=== PATIENT | female | born 1950 | race Hispanic/Latino ===

== ENCOUNTER 2021-05-08 19:46 | Emergency (ER) | payer MEDICARE, OTHER ==
[~2021-05-08] VITALS: Ht 160 cm; Wt 81.6 kg
[~2021-05-08 19:46] MED LIST: ALENDRONATE SOD70 MG PO; ATENOLOL50 MG PO; LEVOTHYROXINE100 MC1 PO; SIMVASTATIN40 MG PO
[2021-05-08] MEDS ORDERED: LIDOCAINE 4% PATCH TP STA (20:11)
[2021-05-08] MEDS ORDERED: KETOROLAC TROMETHAMINE 30 MG/ML VIAL IM STA (20:11)
[2021-05-08] MEDS ORDERED: ACETAMINOPHEN 325 MG TAB PO ONE (20:15)
[2021-05-08] MEDS ORDERED: ACETAMINOPHEN 325 MG TAB ONE (20:26)
[2021-05-08] MEDS ORDERED: KETOROLAC TROMETHAMINE 30 MG/ML VIAL ONE (20:26)
[2021-05-08] MEDS ORDERED: LIDOCAINE 4% PATCH TP ONE (20:26)
[2021-05-08 20:33] LABS: CLARITY,URINE CLEAR (CLEAR); COLOR,URINE YELLOW (YELLOW); KETONES,URINE NEGATIVE (NEGATIVE); LEUKOCYTE ESTERASE ,URINE NEGATIVE (NEGATIVE); NITRITE,URINE NEGATIVE (NEGATIVE); PROTEIN,URINE DIPSTICK NEGATIVE (NEGATIVE); URINE UROBILINOGEN 0.2 mg/dL (0.2 - 1)
[2021-05-08 20:44] LABS: AMORPHOUS SEDIMENT,URINE MODERATE (FEW); BACTERIA,URINE MODERATE /HPF; EPITHELIAL CELLS,URINE FEW /LPF; MUCUS,URINE FEW (RARE); RBC,URINE 0-5 /HPF (0-5)
[2021-05-08] MEDS ORDERED: CEPHALEXIN500 MG PO (21:02)
[2021-05-08] MEDS ORDERED: LIDOPATCH1 EACH TOP (21:02)
[2021-05-08] MEDS ORDERED: METHOCARBAMOL500 MG PO (21:03)
== END 2021-05-08 23:02 | disposition home or self-care (01) ==
LOC: ER 20:11
DX: M54.50 Low back pain, unspecified (principal); N39.0 Urinary tract infection, site not specified; I10 Essential (primary) hypertension; E03.9 Hypothyroidism, unspecified; E78.5 Hyperlipidemia, unspecified
CPT/HCPCS: 81001; 99283; J1885

== ENCOUNTER 2024-02-08 18:06 | Observation (INO) | payer MEDICARE, OTHER ==
[~2024-02-08] VITALS: Ht 160 cm; Wt 77.1 kg
[~2024-02-08 18:06] MED LIST changes: +CEPHALEXIN500 MG PO; +LIDOPATCH1 EACH TOP; +METHOCARBAMOL500 MG PO
[2024-02-08 18:16] VITALS: TEMP 97.8
[2024-02-08 19:00] LABS: BASOPHILS # (AUTO) 0.1 (0.0-0.1); BASOPHILS % 0.4 % (0.0-1.0); EOSINOPHILS # (AUTO) 0.1 (0.0-0.4); EOSINOPHILS % 0.9 % (0.0-6.0); HEMATOCRIT 45.2 % (34.2-44.1); HEMOGLOBIN 13.9 g/dL (12.0-16.0); MEAN CORPUSCULAR HEMOGLOBIN 26.8 pg (28-32); MEAN CORPUSCULAR HGB CONC 30.8 g/dL (31-35); MEAN CORPUSCULAR VOLUME 87.1 fL (81-99); MONOCYTES % 6.5 % (4.4-11.3); NEUTROPHILS # (AUTO) 11.3 (2.1-6.9); NEUTROPHILS % 77.9 % (38.7-80.0); PLATELET COUNT 191 x10e3/uL (140-360); RED BLOOD COUNT 5.19 x10e6/uL (3.6-5.1); RED CELL DISTRIBUTION WIDTH 14.3 % (11.7-14.4); WHITE BLOOD COUNT 14.56 x10e3/uL (4.8-10.8)
[2024-02-08] MEDS: HYDRALAZINE HCL 20 MG/ML VIAL IV STA (19:09)
[2024-02-08] MEDS ORDERED: HYDRALAZINE HCL 20 MG/ML VIAL ONE (19:11)
[2024-02-08 19:14] LABS: ALBUMIN 4.2 g/dL (3.5-5.0); ALBUMIN/GLOBULIN RATIO 1.1 (0.8-2.0); ANION GAP 17.9 mmol/L (8-16); BILIRUBIN,TOTAL 0.4 mg/dL (0.2-1.2); CALCIUM 10.1 mg/dL (8.4-10.2); CREATININE, SERUM 0.79 mg/dL (0.57-1.11); POTASSIUM 3.9 mmol/L (3.5-5.1); TOTAL PROTEIN 7.9 g/dL (6.5-8.1)
[2024-02-08 19:20] LABS: TROPONIN I 0.024 ng/mL (0-0.300)
[2024-02-08] MEDS ORDERED: SODIUM CHLORIDE FLUSH 10 ML SYR INJ PRN (20:00)
[2024-02-08] MEDS ORDERED: HYDRALAZINE HCL 20 MG/ML VIAL IV PRN (20:00)
[2024-02-08] MEDS ORDERED: IOPAMIDOL 370 MG/ML 100 ML INFUS..BTL INJ ONE (20:04)
[2024-02-08] MEDS: Morphine 4mg INJECTION 4 MG/ML INJ IV PRN (20:38)
[2024-02-08] MEDS: ONDANSETRON HCL INJ 2MG/ML 2ML 2 MG/ML VIAL IV PRN (20:38)
[2024-02-08 21:33] VITALS: PULSE 76; RESP 16
[2024-02-08 21:48] VITALS: BP 148/66; PULSE 70; RESP 20; TEMP 98.1; O2SAT 100
[2024-02-08 21:50] VITALS: BP 148/66; PULSE 70; RESP 20; TEMP 98; O2SAT 98
[2024-02-09] VITALS (7 sets, daily range): BP systolic 125–156; BP diastolic 53–64; PULSE 59–68; RESP 16–20; TEMP 97.2–98.6; O2SAT 95–100
[2024-02-09] MEDS ORDERED: Morphine 4mg INJECTION 4 MG/ML INJ IV PRN (01:00)
[2024-02-09] MEDS ORDERED: MELATONIN 3 MG TAB PO PRN (01:00)
[2024-02-09] MEDS ORDERED: ALBUTEROL SULF 0.083% NEB SOLN 3 ML NEB NEB PRN (01:00)
[2024-02-09] MEDS ORDERED: MAGNESIUM/ALUMINUM/SIMETHICONE 30 ML UDC PO PRN (01:00)
[2024-02-09] MEDS ORDERED: DOCUSATE SODIUM 100 MG CAP PO PRN (01:00)
[2024-02-09] MEDS ORDERED: GUAIFENESIN/DEXTROMETHORPHAN LIQD 5 ML UDC PO PRN (01:00)
[2024-02-09] MEDS ORDERED: METOPROLOL SUCC50 MG PO (02:28)
[2024-02-09] MEDS ORDERED: PROTONIX20 MG PO ×2 (02:28→12:51)
[2024-02-09 02:37] LABS: TROPONIN I 0.019 ng/mL (0-0.300)
[2024-02-09] MEDS ORDERED: HYDRALAZINE HCL 20 MG/ML VIAL IV PRN (04:00)
[2024-02-09 05:27] LABS: BASOPHILS % 0.3 % (0.0-1.0); HEMATOCRIT 41.2 % (34.2-44.1); HEMOGLOBIN 12.1 g/dL (12.0-16.0); LYMPHOCYTES # (AUTO) 1.3 (1.0-3.2); LYMPHOCYTES % 9.9 % (18.0-39.1); MEAN CORPUSCULAR HGB CONC 29.4 g/dL (31-35); MONOCYTES # (AUTO) 0.7 (0.2-0.8); NEUTROPHILS # (AUTO) 11.4 (2.1-6.9); NEUTROPHILS % 84.4 % (38.7-80.0); PLATELET COUNT 235 x10e3/uL (140-360); RED BLOOD COUNT 4.48 x10e6/uL (3.6-5.1); RED CELL DISTRIBUTION WIDTH 14.6 % (11.7-14.4); WHITE BLOOD COUNT 13.48 x10e3/uL (4.8-10.8)
[2024-02-09] MEDS: LEVOTHYROXINE SODIUM 100 MCG TAB PO SCH (05:49)
[2024-02-09 05:53] LABS: ALBUMIN 3.5 g/dL (3.5-5.0); ALBUMIN/GLOBULIN RATIO 1.2 (0.8-2.0); BILIRUBIN,TOTAL 0.4 mg/dL (0.2-1.2); CALCIUM 8.9 mg/dL (8.4-10.2); CREATININE, SERUM 0.73 mg/dL (0.57-1.11); TOTAL PROTEIN 6.5 g/dL (6.5-8.1)
[2024-02-09 06:10] LABS: TROPONIN I 0.015 ng/mL (0-0.300)
[2024-02-09] MEDS: ASPIRIN 81 MG ENTERIC COATED PO SCH (09:14)
[2024-02-09] MEDS: ATENOLOL 50 MG TAB PO SCH (09:15)
[2024-02-09] MEDS ORDERED: ASPIRIN EC81 MG PO (12:51)
[2024-02-09] MEDS ORDERED: AZITHROMYCIN500 MG PO (12:51)
[2024-02-09] MEDS: ACETAMINOPHEN 325 MG TAB PO PRN (14:24)
[2024-02-09 14:50] LABS: TROPONIN I 0.016 ng/mL (0-0.300)
[2024-02-09] MEDS ORDERED: MAALOX MAXIMUM355 ML PO (16:01)
[2024-02-09] MEDS ORDERED: SIMVASTATIN 40 MG TAB PO SCH (21:00)
[2024-02-09] MEDS ORDERED: METHOCARBAMOL 500 MG TAB PO SCH (21:00)
== END 2024-02-09 17:10 | disposition home or self-care (01) ==
LOC: ER 18:15 → ERHOLD 19:46 → MED/SURG2 22:05
PROVIDERS: ADMIT Internal Medicine; ATTEND Internal Medicine
DX: I16.0 Hypertensive urgency (principal); I10 Essential (primary) hypertension; R07.89 Other chest pain; R10.13 Epigastric pain; J90 Pleural effusion, not elsewhere classified; D72.829 Elevated white blood cell count, unspecified; J98.6 Disorders of diaphragm; E78.5 Hyperlipidemia, unspecified; E03.9 Hypothyroidism, unspecified; E66.9 Obesity, unspecified; Z68.30 Body mass index [BMI] 30.0-30.9, adult; Z11.52 Encounter for screening for COVID-19; Z90.49 Acquired absence of other specified parts of digestive tract; Z79.899 Other long term (current) drug therapy; Z79.82 Long term (current) use of aspirin
CPT/HCPCS: 36415 ×2; 71045; 71275; 80053 ×2; 82550 ×2; 83690; 83880; 84484 ×2; 85025 ×2; 85379; 93005 ×2; 93306; 94799; 99284; G0378 ×2; J0360; J0456; J2270 ×2; J2405 ×2; J7050; Q9967; U0002